=== PATIENT | female | born 2000 | race African-American/Black ===

== ENCOUNTER 2020-12-29 08:29 | Emergency (ER) | payer MEDICAID, OTHER ==
[~2020-12-29] VITALS: Ht 167.6 cm; Wt 90.0 kg
[2020-12-29] MEDS ORDERED: METOCLOPRAMIDE HCL 10MG/2ML VIAL IV ONE (09:30)
[2020-12-29] MEDS ORDERED: SODIUM CHLORIDE 0.9% 1,000 ML IV ONE (09:30)
[2020-12-29 10:25] LABS: BASOPHILS % 0.9 % (0.0-2.0); EOSINOPHILS % 0.4 % (0.0-5.0); HEMATOCRIT. 38.5 % (36.0-48.0); HEMOGLOBIN. 13.5 g/dL (12.0-16.0); LYMPHOCYTES % 20.7 % (20.0-50.0); MEAN CORPUSCULAR HEMOGLOBIN 26.9 pg (28.0-32.0); MEAN CORPUSCULAR VOLUME 76.6 fL (81.0-99.0); MEAN PLATELET VOLUME 8.4 fl (7.4-10.4); MONOCYTES % 7.7 % (2.0-8.0); NEUTROPHILS % 70.3 % (40.0-76.0); PLATELET 294 x1000/uL (130-400); RED BLOOD CELL COUNT 5.02 mill/uL (4.2-5.4); RED CELL DISTRIBUTION WIDTH 18.5 % (11.6-14.6)
[2020-12-29 10:26] LABS: CHLORIDE 101 mEq/L (98-107)
[2020-12-29 10:49] LABS: B-HCG QUANTITATIVE 59089 mIU/mL (<3)
[2020-12-29 13:47] LABS: CLARITY URINE CLEAR (CLEAR); COLOR URINE YELLOW (YELLOW); KETONES URINE 3+ (NEGATIVE); LEUKOCYTE ESTERASE URINE NEGATIVE (NEGATIVE); NITRITE URINE NEGATIVE (NEGATIVE); OCCULT BLOOD URINE NEGATIVE (NEGATIVE); PH URINE 5.5 (4.5-8.0); PROTEIN URINE NEGATIVE (NEGATIVE)
[2020-12-29] MEDS ORDERED: METO5TAB86 MT (14:01)
[2020-12-29 14:10] VITALS: BP 126/74
== END 2020-12-29 14:40 | disposition home or self-care (01) ==
LOC: ER 08:29
DX: O21.8 Other vomiting complicating pregnancy (principal); Z3A.12 12 weeks gestation of pregnancy
CPT/HCPCS: 36415; 76801; 76817; 80053; 81003; 83690; 84702; 85025; 86850; 86900; 86901; 96361; 96374; 99285; J2765; J7030

== ENCOUNTER 2021-01-18 10:55 | Emergency (ER) | payer MEDICAID ==
[~2021-01-18] VITALS: Ht 170.2 cm; Wt 90.0 kg
[~2021-01-18 10:55] MED LIST: METO5TAB86 MT
[2021-01-18] MEDS ORDERED: SODIUM CHLORIDE 0.9% 1,000 ML IV ONE (13:45)
[2021-01-18 14:25] LABS: CLARITY URINE CLOUDY (CLEAR); COLOR URINE YELLOW (YELLOW); KETONES URINE 4+ (NEGATIVE); LEUKOCYTE ESTERASE URINE 1+ (NEGATIVE); NITRITE URINE NEGATIVE (NEGATIVE); OCCULT BLOOD URINE NEGATIVE (NEGATIVE); PH URINE 5.5 (4.5-8.0); PROTEIN URINE TRACE (NEGATIVE); SPECIFIC GRAVITY URINE 1.025 (1.005-1.030); UROBILINOGEN URINE 0.2 E.U./dL (0.2-1.0)
[2021-01-18] MEDS ORDERED: METOCLOPRAMIDE HCL 10MG/2ML VIAL IV ONE (14:45)
[2021-01-18 14:59] LABS: *AMPHETAMINES SCREEN URINE NEGATIVE (NEGATIVE); *BARBITURATES SCREEN URINE NEGATIVE (NEGATIVE); *BENZODIAZEPINES SCREEN URINE NEGATIVE (NEGATIVE); *COCAINE SCREEN URINE NEGATIVE (NEGATIVE); METHADONE URINE SCREEN NEGATIVE (NEGATIVE)
[2021-01-18 15:00] LABS: OPIATES URINE SCREEN NEGATIVE (NEGATIVE); PHENCYCLIDINE URINE SCREEN NEGATIVE (NEGATIVE)
[2021-01-18 15:08] LABS: CANNABINOID URINE SCREEN PRESUMTIVE POSITIVE (NEGATIVE)
[2021-01-18 16:23] LABS: BASOPHILS % 0.5 % (0.0-2.0); EOSINOPHILS % 0.1 % (0.0-5.0); HEMATOCRIT. 35.8 % (36.0-48.0); HEMOGLOBIN. 12.1 g/dL (12.0-16.0); LYMPHOCYTES % 16.1 % (20.0-50.0); MEAN CORPUSCULAR HEMOGLOBIN 26.5 pg (28.0-32.0); MEAN CORPUSCULAR VOLUME 78.2 fL (81.0-99.0); MEAN PLATELET VOLUME 7.9 fl (7.4-10.4); MONOCYTES % 6.7 % (2.0-8.0); NEUTROPHILS % 76.6 % (40.0-76.0); PLATELET 339 x1000/uL (130-400); RED BLOOD CELL COUNT 4.58 mill/uL (4.2-5.4)
[2021-01-18] MEDS ORDERED: NITR-87 MT (16:23)
[2021-01-18 16:26] LABS: CHLORIDE 104 mEq/L (98-107)
[2021-01-18] MEDS ORDERED: NITROFURANTOIN 100MG M/M CAPSULE PO ONE (16:30)
[2021-01-18 16:45] VITALS: BP 118/72
[2021-01-18 16:49] LABS: B-HCG QUANTITATIVE 20556 mIU/mL (<3)
== END 2021-01-18 16:46 | disposition home or self-care (01) ==
LOC: ER 11:16
DX: E86.0 Dehydration (principal); F12.10 Cannabis abuse, uncomplicated
CPT/HCPCS: 36415; 76805; 80048; 80305; 81003; 81025; 84702; 85025; 93005; 96361; 96374; 99285; J2765; J7030

== ENCOUNTER 2022-02-27 09:42 | Emergency (ER) | payer OTHER ==
[~2022-02-27] VITALS: Ht 170.2 cm; Wt 100.0 kg
[~2022-02-27 09:42] MED LIST changes: +NITR-87 MT
[2022-02-27] MEDS ORDERED: SODIUM CHLORIDE 0.9% 1,000 ML IV ONE (10:45)
[2022-02-27] MEDS ORDERED: PYRIDOXINE HCL 50MG TABLET PO ONE (10:45)
[2022-02-27] MEDS ORDERED: ONDANSETRON HCL 4MG/2ML INJ IV ONE (10:45)
[2022-02-27 11:43] LABS: BASOPHILS % 0.6 % (0.0-2.0); EOSINOPHILS % 0.2 % (0.0-5.0); HEMATOCRIT. 38.4 % (36.0-48.0); HEMOGLOBIN. 12.7 g/dL (12.0-16.0); LYMPHOCYTES % 15.7 % (20.0-50.0); MEAN CORPUSCULAR HEMOGLOBIN 24.8 pg (28.0-32.0); MEAN CORPUSCULAR VOLUME 74.9 fL (81.0-99.0); MEAN PLATELET VOLUME 8.7 fl (7.4-10.4); MONOCYTES % 5.7 % (2.0-8.0); NEUTROPHILS % 77.8 % (40.0-76.0); PLATELET 320 x1000/uL (130-400); RED BLOOD CELL COUNT 5.12 mill/uL (4.2-5.4); RED CELL DISTRIBUTION WIDTH 17.9 % (11.6-14.6)
[2022-02-27 11:55] LABS: CHLORIDE 103 mEq/L (98-107)
[2022-02-27 12:17] LABS: B-HCG QUANTITATIVE 19535 mIU/mL (<3)
[2022-02-27] MEDS ORDERED: PNV1TABL76 MT (13:41)
[2022-02-27] MEDS ORDERED: DOXY1TAB3 MT (13:41)
[2022-02-27 14:00] VITALS: BP 107/69
== END 2022-02-27 13:59 | disposition home or self-care (01) ==
LOC: ER 10:00
DX: O21.0 Mild hyperemesis gravidarum (principal); Z3A.08 8 weeks gestation of pregnancy
CPT/HCPCS: 36415; 80053; 84702; 85025; 96361; 96374; 99283; J2405; J7030

== ENCOUNTER 2022-03-06 06:49 | Emergency (ER) | payer OTHER ==
[~2022-03-06] VITALS: Ht 170.2 cm; Wt 98.0 kg
[~2022-03-06 06:49] MED LIST changes: +DOXY1TAB3 MT; +PNV1TABL76 MT
[2022-03-06] MEDS ORDERED: ONDANSETRON HCL 4MG/2ML INJ IV STA (08:38)
[2022-03-06] MEDS ORDERED: SODIUM CHLORIDE 0.9% 1,000 ML IV ONE (08:45)
[2022-03-06] MEDS ORDERED: PYRIDOXINE HCL 50MG TABLET PO ONE (09:00)
[2022-03-06 09:34] LABS: BASOPHILS % 0.5 % (0.0-2.0); EOSINOPHILS % 0.1 % (0.0-5.0); HEMATOCRIT. 37.4 % (36.0-48.0); HEMOGLOBIN. 12.3 g/dL (12.0-16.0); LYMPHOCYTES % 13.9 % (20.0-50.0); MEAN CORPUSCULAR VOLUME 76.2 fL (81.0-99.0); MEAN PLATELET VOLUME 8.4 fl (7.4-10.4); MONOCYTES % 5.5 % (2.0-8.0); PLATELET 307 x1000/uL (130-400); RED BLOOD CELL COUNT 4.91 mill/uL (4.2-5.4); RED CELL DISTRIBUTION WIDTH 18.2 % (11.6-14.6)
[2022-03-06 09:40] LABS: CHLORIDE 100 mEq/L (98-107)
[2022-03-06] MEDS ORDERED: POTASSIUM CHLORIDE 20MEQ TABLET SR PO NR (10:00)
[2022-03-06 12:41] LABS: CLARITY URINE CLOUDY (CLEAR); COLOR URINE YELLOW (YELLOW); KETONES URINE 3+ (NEGATIVE); LEUKOCYTE ESTERASE URINE TRACE (NEGATIVE); NITRITE URINE NEGATIVE (NEGATIVE); OCCULT BLOOD URINE NEGATIVE (NEGATIVE); PH URINE 5.5 (4.5-8.0); PROTEIN URINE NEGATIVE (NEGATIVE); SPECIFIC GRAVITY URINE 1.015 (1.005-1.030)
[2022-03-06] MEDS ORDERED: METO5TAB86 MT (13:10)
[2022-03-06 13:40] VITALS: BP 138/83
== END 2022-03-06 13:40 | disposition home or self-care (01) ==
LOC: ER 06:49
DX: O20.0 Threatened abortion (principal); O21.0 Mild hyperemesis gravidarum; Z3A.01 Less than 8 weeks gestation of pregnancy
CPT/HCPCS: 36415; 76801; 76817; 80053; 81003; 83690; 84702; 85025; 86850; 86900; 86901; 96361; 96374; 99284; J2405; J7030

== ENCOUNTER 2022-04-09 05:38 | Emergency (ER) | payer OTHER ==
[~2022-04-09] VITALS: Ht 172.7 cm; Wt 96.6 kg
[2022-04-09] MEDS ORDERED: ONDANSETRON HCL 4MG/2ML INJ IV ONE ×2 (06:30)
[2022-04-09 07:44] LABS: BASOPHILS % 0.5 % (0.0-2.0); EOSINOPHILS % 1.8 % (0.0-5.0); HEMOGLOBIN. 12.5 g/dL (12.0-16.0); LYMPHOCYTES % 21.2 % (20.0-50.0); MEAN CORPUSCULAR HEMOGLOBIN 25.6 pg (28.0-32.0); MEAN CORPUSCULAR VOLUME 75.9 fL (81.0-99.0); MEAN PLATELET VOLUME 8.2 fl (7.4-10.4); MONOCYTES % 7.5 % (2.0-8.0); PLATELET 332 x1000/uL (130-400); RED BLOOD CELL COUNT 4.87 mill/uL (4.2-5.4); RED CELL DISTRIBUTION WIDTH 19.3 % (11.6-14.6)
[2022-04-09] MEDS ORDERED: SODIUM CHLORIDE 0.9% 1,000 ML IV ONE (07:45)
[2022-04-09 07:55] LABS: CHLORIDE 103 mEq/L (98-107)
[2022-04-09 08:17] LABS: B-HCG QUANTITATIVE 59259 mIU/mL (<3)
[2022-04-09] MEDS ORDERED: DOXY1TAB6 PO (09:03)
[2022-04-09 09:29] VITALS: BP 110/70
== END 2022-04-09 09:31 | disposition home or self-care (01) ==
LOC: ER 05:38
DX: O21.9 Vomiting of pregnancy, unspecified (principal); Z3A.01 Less than 8 weeks gestation of pregnancy
CPT/HCPCS: 36415; 80053; 81025; 84702; 85025; 86850; 86900; 86901; 96361; 96374; 99283; J2405; J7030

== ENCOUNTER 2022-05-03 02:02 | Emergency (ER) | payer OTHER ==
[~2022-05-03] VITALS: Ht 172.7 cm; Wt 91.0 kg
[~2022-05-03 02:02] MED LIST changes: +DOXY1TAB6 PO
[2022-05-03] MEDS ORDERED: CEPH500C2 MT (02:59)
[2022-05-03] MEDS: CEPHALEXIN 250MG CAPSULE PO NR ×2 (03:00→03:34)
[2022-05-03] MEDS ORDERED: IBUPROFEN 600MG TABLET PO ONE (03:00)
[2022-05-03 03:32] VITALS: BP 94/78
== END 2022-05-03 03:36 | disposition home or self-care (01) ==
LOC: ER 02:02
DX: O23.592 Infection of other part of genital tract in pregnancy, second trimester (principal); L73.8 Other specified follicular disorders; Z3A.16 16 weeks gestation of pregnancy
CPT/HCPCS: 99283

== ENCOUNTER 2024-06-13 20:01 | Emergency (ER) | payer OTHER ==
[~2024-06-13] VITALS: Ht 170.2 cm; Wt 104.0 kg
[~2024-06-13 20:01] MED LIST changes: +CEPH500C2 MT; +CEPH500T MT; +SULF1TAB48 MT
[2024-06-13 20:38] VITALS: BP 117/76; RESP 14; TEMP 97.9; O2SAT 99
[2024-06-13 20:40] VITALS: PULSE 69; O2SAT 99
[2024-06-13] MEDS ORDERED: CEPH500C2 MT (22:48)
[2024-06-13] MEDS: LIDOCAINE HCL 1% 20ML VIAL INFIL ONE (22:53)
[2024-06-13] MEDS: POVIDONE-IODINE 10% TOPICAL SOLN 240ML TOP ONE (22:53)
== END 2024-06-13 22:55 | disposition home or self-care (01) ==
LOC: ER 20:01
DX: L73.1 Pseudofolliculitis barbae (principal); Z79.899 Other long term (current) drug therapy; Z98.890 Other specified postprocedural states
CPT/HCPCS: 99283; 10060; J3490